=== PATIENT | female | born 1995 | race African-American/Black ===

== ENCOUNTER 2019-10-21 11:35 | Emergency (ER) | payer OTHER ==
[~2019-10-21] VITALS: Ht 162.6 cm; Wt 86.2 kg
[~2019-10-21 11:35] MED LIST: ALBUTEROL INH; IBUPROFEN 800800 MG PO; NORCO 5-325 TA1 EACH PO
[2019-10-21 13:25] VITALS: BP 94/71
== END 2019-10-21 14:09 | disposition home or self-care (01) ==
LOC: ER 11:35
DX: S93.491A Sprain of other ligament of right ankle, initial encounter (principal); S90.01XA Contusion of right ankle, initial encounter; J45.909 Unspecified asthma, uncomplicated; X50.1XXA Overexertion from prolonged static or awkward postures, initial encounter; Y93.01 Activity, walking, marching and hiking; Y92.89 Other specified places as the place of occurrence of the external cause; Y99.9 Unspecified external cause status

== ENCOUNTER 2020-07-27 07:32 | Emergency (ER) | payer OTHER ==
[~2020-07-27] VITALS: Ht 162.6 cm; Wt 83.5 kg
[2020-07-27 10:13] VITALS: BP 115/68
== END 2020-07-27 10:17 | disposition home or self-care (01) ==
LOC: ER 07:32
DX: S01.412A Laceration without foreign body of left cheek and temporomandibular area, initial encounter (principal); J45.909 Unspecified asthma, uncomplicated; Z79.899 Other long term (current) drug therapy; W18.39XA Other fall on same level, initial encounter; Y93.89 Activity, other specified; Y92.89 Other specified places as the place of occurrence of the external cause; Y99.8 Other external cause status

== ENCOUNTER 2020-08-03 15:07 | Emergency (ER) | payer OTHER ==
[~2020-08-03] VITALS: Ht 162.6 cm; Wt 77.1 kg
[2020-08-03 15:26] VITALS: BP 101/72
== END 2020-08-03 16:10 | disposition home or self-care (01) ==
LOC: ER 15:07
DX: S01.412D Laceration without foreign body of left cheek and temporomandibular area, subsequent encounter (principal); F12.90 Cannabis use, unspecified, uncomplicated; J45.909 Unspecified asthma, uncomplicated; X58.XXXD Exposure to other specified factors, subsequent encounter